=== PATIENT | male | born 1995 | race Caucasian/White ===

== ENCOUNTER 2017-02-12 01:37 | Emergency (ER) | payer BC, OTHER ==
--- NOTE | 2017-02-12 01:39 | PDOC ---
History of Present Illness - General Chief Complaint: Nausea/Vomiting Stated Complaint: NAUSEA/VOMITING Time Seen by Provider: 02/12/17 01:38 - History of Present Illness Initial Comments: 02/12/17 01:47 This 21-year-old man with a history of inactive asthma and no other significant past medical history presents with a few hour history of nausea and vomiting. Patient states that he ate at a "[id number]" at a steak house at approximately 8 PM. Approximately 90 minutes later, he began to vomit. Emesis was partially digested food followed by bilious liquid. No blood/coffee grounds noted. No history of diarrhea although he states he is actively passing gas. No fever noted although he feels chilly. No recent febrile illness. No recent travel. Patient states that he has poor eating habits (for example, does not eat breakfast and eats large amounts of food late in the day). No daily alcohol use. Patient states that he drinks alcohol and smokes marijuana on weekends. No other recreational drug use. Past History - Past Medical History Allergies/Adverse Reactions: Allergies Allergy/AdvReac Type Severity Reaction Status Date / Time No Known Allergies Allergy Unverified 05/19/12 01:18 Home Medications: Ambulatory Orders No Home Medications 05/19/12 Ondansetron [Zofran Odt -] 4 mg SL TID PRN #10 od.tablet 02/12/17 Asthma: Yes - Immunization History Td Vaccination: Yes - Suicide/Smoking/Psychosocial Hx Smoking Status: No Smoking History: Never smoked Number of Cigarettes Smoked Daily: 0 Hx Alcohol Use: No Drug/Substance Use Hx: No Review of Systems - Review of Systems Able to Perform ROS?: Yes Comments:: 12 point review of systems is negative except for what is noted in the history of present illness *Physical Exam - Physical Exam Comments: GENERAL: Young adult male, alert and oriented 3, in moderate distress, secondary to nausea HEAD: Normal with no signs of trauma. EYES: PERRLA, EOMI, sclera anicteric, conjunctiva clear. ENT: Ears normal, nares patent, oropharynx clear without exudates. Dry mucous membranes. NECK: Normal range of motion, supple without lymphadenopathy, JVD, or masses. LUNGS: Breath sounds equal, clear to auscultation bilaterally. No wheezes, and no crackles. HEART:Regular rate and rhythm, normal S1 and S2 without murmur, rub or gallop. ABDOMEN:.normal bowel sounds No guarding,tenderness or rebound.No masses No distention. EXTREMITIES: Normal range of motion, no edema. No clubbing or cyanosis. No erythema, or tenderness. NEUROLOGICAL: Cranial nerves II through XII grossly intact. Normal speech. No focal neurological deficits. MUSCULOSKELETAL: Back non-tender to palpation, no CVA tenderness SKIN: Warm, Dry, normal turgor, no rashes or lesions noted. Progress Note - Progress Note Progress Note: Patient was given 2 L of normal saline IV along with 2 doses of Zofran 4 mg IV. He had some recurrent nausea and vomiting after second dose of Zofran , so Reglan 10 mg IVPB administered. Patient was able to tolerate water by mouth after medications and IV hydration. He had mild epigastric discomfort but denied nausea or severe abdominal pain. Patient had voided twice prior to discharge. Patient discharged with instructions to maintain clear liquids and advance diet very cautiously. Prescription for Zofran ODT 4 mg up to 3 times a day was transmitted to the pharmacy. Patient should return to the emergency room if he has any recurrent, persistent vomiting or develops severe abdominal pain/fever *DC/Admit/Observation/Transfer Diagnosis at time of Disposition: Gastroenteritis - Discharge Dispostion Disposition: HOME Condition at time of disposition: Stable - Prescriptions Prescriptions: Ondansetron [Zofran Odt -] 4 mg SL TID PRN #10 od.tablet PRN Reason: Nausea - Referrals - Patient Instructions Printed Discharge Instructions: DI for Vomiting -- Adult Additional Instructions: Clear liquids, advance diet cautiously Zofran ODT 4 mg to 3 times a day as needed for nausea Follow-up with your doctor within the next 5 days Return to ER if you have persistent vomiting or severe pain Once you are able to eat regular food, try to avoid prolonged periods of fasting (eat small, more frequent meals) - Post Discharge Activity
[2017-02-12 01:41] VITALS: BP 142/88; PULSE 96; TEMP 98.3; BMI 25.8
[2017-02-12] MEDS ORDERED: ONDANSETRON 4 MG/2 ML VIAL IVPUSH ONE ×2 (01:47→02:29)
[2017-02-12] MEDS ORDERED: SODIUM CHLORIDE 1,000 ML IV STA (01:47)
[2017-02-12] MEDS ORDERED: ONDANSETRON 4 MG/2 ML VIAL ONE ×2 (01:53→02:33)
[2017-02-12] MEDS ORDERED: FAMOTIDINE IV 20 MG/12 ML VIAL IVPB ONE (01:56)
[2017-02-12] MEDS ORDERED: FAMOTIDINE 20 MG/50 ML IVPB 20 MG/50 ML MG IVPB ONE (01:56)
[2017-02-12] MEDS ORDERED: METOCLOPRAMIDE HCL INJECTION 10 MG/2 ML VIAL IVPB ONE (02:50)
== END 2017-02-12 03:35 | disposition home or self-care (01) ==
LOC: FER 01:37
PROC: 3E033GC Introduction of Other Therapeutic Substance into Peripheral Vein, Percutaneous Approach (ICD-10-PCS; principal; 2017-02-12)
PROC: 3E033GC Introduction of Other Therapeutic Substance into Peripheral Vein, Percutaneous Approach (ICD-10-PCS; 2017-02-12)
PROC: 3E0337Z Introduction of Electrolytic and Water Balance Substance into Peripheral Vein, Percutaneous Approach (ICD-10-PCS; 2017-02-12)
DX: K52.9 Noninfective gastroenteritis and colitis, unspecified (principal); J45.909 Unspecified asthma, uncomplicated
CPT/HCPCS: 99282-25

== ENCOUNTER 2017-06-25 19:37 | Emergency (ER) | payer BC ==
--- NOTE | 2017-06-25 19:40 | PDOC ---
History of Present Illness - General History Source: Patient Exam Limitations: No Limitations - History of Present Illness Initial Comments: 06/25/17 20:46 The patient is a 22 year old male who presents to the emergency department for evaluation of multiple episodes of emesis beginning at 12pm. The patient reports 10-12 episodes of NBNB emesis beginning at 12 noon. He reports associated epigastric pain ranked 4/10 in severity and nausea. The patient reports history of multiple episodes of emesis in which he was admitted to [facility] twice, in January and February. The patient states history of emesis had correlation with alcohol consumption the night prior to sickness, and admits he had a navid last night. The patient reports having a solid bowel movement this morning. The patient denies chest pain, shortness of breath, headache, dizziness and sick contact. Denies fevers, chills, diarrhea, and constipation. Denies dysuria, frequency, urgency, and hematuria. PAST MEDICAL HISTORY: Asthma PAST SURGICAL HISTORY: Hernia FAMILY HISTORY: no pertinent history SOCIAL HISTORY: Pt lives with family and is employed. Patient admits to social alcohol consumption and recreational marijuana use. MEDICATIONS: reviewed ALLERGIES: As per nursing notes ROS General: No fevers or chills, no weakness, no weight loss HEENT: No change in vision. No sore throat,. No ear pain Cardiovascular: No chest pain or shortness of breath Respiratory:No cough, or wheezing. Gastrointestinal: (+)Nausea. (+)Vomiting. No diarrhea or constipation, No rectal bleeding Genitourinary: No dysuria, hematuria, or frequency Musculoskeletal: (+)Epigastric pain. No joint pain or swelling. Neurologic: No headache, vertigo, dizziness or loss of consciousness Psychiatric: nor depression Skin: No rashes or easy bruising Endocrine: no increased thirst or abnormal weight change Allergic: no skin or latex allergy All other systems reviewed and normal PE General: Well-nourished well-developed individual, no acute distress HEENT: Throat: (+)Mucous membranes dry. No erythema or exudate Neck: Supple, no meningeal signs, no lymphadenopathy Eyes:Pupils equal reactive and round, extraocular motion intact Chest: Nontender to palpation Cardiac: S1-S2 normal, regular rate and rhythm, no murmurs rubs or gallops Respiratory: Lungs clear to auscultation bilateral Abdomen: (+)Bowel sounds mildly increased, otherwise normal. Soft, nondistended , nontender to palpation diffusely. Extremities: Warm, dry, no cyanosis, clubbing, or edema Skin: No rashes Neuro: Alert and oriented x3, nonfocal exam, grossly intact, normal gait Psych: Normal mood and affect <Yonathan Brice - Last Filed: 06/25/17 20:46> - General History Source: Patient Exam Limitations: No Limitations - History of Present Illness Initial Comments: A portion of this note was documented by scribe services under my direction. I have reviewed the details of the note, within reason, and agree with the documentation. The case summary and management plan written by me. 06/25/17 20:41 Assessment and plan: This is a 22-year-old male comes in complaining of vomiting. Patient has had history of similar vomiting in the past secondary to drinking alcohol. Patient said however he is also been able to drink alcohol without it precipitating the vomiting. Patient denied any pain, fever, diarrhea. On my exam patient's abdomen soft without any tenderness but slightly increased bowel sounds. We'll obtain basic labs and hydrate patient and give patient antiemetics. 21:30 Patient's vomiting will give some hyoscyamine and continue to hydrate 22:00 Patient vomiting will give Compazine and continue to hydrate Patient's labs show a mildly elevated white count with a small left shift. Potassium is 3.3 glucose is 126 otherwise labs are unremarkable 06/25/17 22:57 Patient awake alert feels much better and wants regular food as he says he is hungry. Patient given small amount of liquids orally which he tolerated and discharged home with his mother. Patient told clear liquids only tonight no regular food <Zana Mccartney I - Last Filed: 06/25/17 22:57> - General Chief Complaint: Nausea/Vomiting Stated Complaint: NAUSEA & VOMITING Time Seen by Provider: 06/25/17 19:39 Past History <Yonathan Brice - Last Filed: 06/25/17 20:46> - Past Medical History Asthma: Yes COPD: No - Immunization History Td Vaccination: Yes - Suicide/Smoking/Psychosocial Hx Smoking Status: No Smoking History: Never smoked Number of Cigarettes Smoked Daily: 0 'Breaking Loose' booklet given: 02/12/17 Hx Alcohol Use: No Drug/Substance Use Hx: No Substance Use Type: Alcohol, Marijuana <Zana Mccartney I - Last Filed: 06/25/17 22:57> - Past Medical History Allergies/Adverse Reactions: Allergies Allergy/AdvReac Type Severity Reaction Status Date / Time ondansetron Allergy Mild Itching Verified 06/25/17 20:21 Home Medications: Ambulatory Orders NK [No Known Home Medication] 06/25/17 *Physical Exam - Vital Signs Last Vital Signs Temp Pulse Resp BP Pulse Ox 98.2 F 72 16 123/77 100 06/25/17 19:38 06/25/17 19:38 06/25/17 19:38 06/25/17 19:38 06/25/17 19:38 <Yonathan Brice - Last Filed: 06/25/17 20:46> ED Treatment Course - LABORATORY CBC & Chemistry Diagram: 06/25/17 19:55 06/25/17 19:55 - ADDITIONAL ORDERS Additional order review: Laboratory Results 06/25/17 19:55 Sodium 135 L Potassium 3.3 L Chloride 102 Carbon Dioxide 23 Anion Gap 10 BUN 12 D Creatinine < 0.8 D Creat Clearance w eGFR > 60 Random Glucose 126 H D Calcium 9.4 Total Bilirubin 0.8 D AST 46 H D ALT 37 D Alkaline Phosphatase 86 Total Protein 7.5 Albumin 4.7 06/25/17 19:55 RBC 4.84 MCV 89.4 MCHC 35.2 RDW 13.0 MPV 7.6 Neutrophils % 85.5 H D Lymphocytes % 6.7 L D Monocytes % 7.5 Eosinophils % 0.0 D Basophils % 0.3 - Medications Given in the ED: ED Medications Discontinued Medications Generic Name Dose Route Start Last Admin Trade Name Freq PRN Reason Stop Dose Admin Metoclopramide HCl 10 mg 06/25/17 20:10 06/25/17 20:10 Reglan Injection - IVPUSH 06/25/17 20:11 10 mg ONCE ONE Administration Ondansetron HCl 8 mg 06/25/17 19:50 06/25/17 20:16 Zofran Injection IVPB 06/25/17 19:51 Not Given ONCE ONE <Yonathan Brice - Last Filed: 06/25/17 20:46> - LABORATORY CBC & Chemistry Diagram: 06/25/17 19:55 06/25/17 19:55 <Zana Mccartney I - Last Filed: 06/25/17 22:57> *DC/Admit/Observation/Transfer - Attestations Scribe Attestion: Documentation prepared by Yonathan Brice, acting as medical lab director for Zana Mccartney MD. <Yonathan Brice - Last Filed: 06/25/17 20:46> - Discharge Dispostion Admit: No <Zana Mccartney I - Last Filed: 06/25/17 22:57> Diagnosis at time of Disposition: Nausea and vomiting Qualifiers: Vomiting type: unspecified Vomiting Intractability: non-intractable Qualified Code(s): R11.2 - Nausea with vomiting, unspecified - Discharge Dispostion Disposition: HOME Condition at time of disposition: Good - Referrals Referrals: Jori Anderson MD [Primary Care Provider] - - Patient Instructions Printed Discharge Instructions: DI for Vomiting -- Adult Additional Instructions: Clear liquids only for the next 6 hours.. After that if you have had no further vomiting you may have bananas, rice, applesauce, or toast. If no further vomiting for another 8 hours you may have regular food. If you vomit again then nothing to eat or drink for 2 hours. then start back with the clear liquids. Return to the emergency department immediately with ANY new, persistent or worsening symptoms. You MUST call and follow up with your doctor tomorrow if not better. Please make sure your doctor reviews the results of your emergency evaluation. - Post Discharge Activity
[2017-06-25 19:45] VITALS: BP 123/77; PULSE 72; TEMP 98.2; BMI 25.0
[2017-06-25] MEDS ORDERED: SODIUM CHLORIDE 1,000 ML IV ONE ×3 (19:49→22:40)
[2017-06-25] MEDS ORDERED: ONDANSETRON 4 MG/2 ML VIAL IVPB ONE (19:50)
[2017-06-25] MEDS ORDERED: ONDANSETRON 4 MG/2 ML VIAL ONE (20:02)
[2017-06-25] MEDS ORDERED: METOCLOPRAMIDE HCL INJECTION 10 MG/2 ML VIAL IVPUSH ONE (20:10)
[2017-06-25 20:18] LABS: BASO % 0.3 % (0-2.0); HEMATOCRIT 43.3 % (35.4-49); HEMOGLOBIN 15.2 GM/dl (11.7-16.9); LYMPH % 6.7 % (8-40); MCH 31.4 pg (25.7-33.7); MCHC 35.2 g/dl (32.0-35.9); MEAN CELL VOLUME 89.4 fl (80-96); MEAN PLT VOLUME 7.6 fl (7.5-11.1); MONO % 7.5 % (3.8-10.2); NEUT % 85.5 % (42.8-82.8); PLATELET COUNT 316 K/MM3 (134-434); RBC 4.84 M/mm3 (4.00-5.60); WHITE BLOOD COUNT 13.7 K/mm3 (4.0-10.8)
[2017-06-25 20:20] LABS: ALBUMIN 4.7 g/dl (3.5-5.0); ALK PHOS 86 U/L (32-92); ANION GAP 10 (8-16); BILIRUBIN,TOTAL 0.8 mg/dl (0.2-1.0); BLOOD UREA NITROGEN 12 mg/dl (7-18); CALCIUM 9.4 mg/dl (8.4-10.2); CHLORIDE 102 mmol/L (98-107); CO2 23 mmol/L (22-28); GLUCOSE,RANDOM 126 mg/dl (74-106); POTASSIUM 3.3 mmol/L (3.5-5.1); SGOT/AST 46 U/L (10-42); SGPT/ALT 37 U/L (10-40); SODIUM 135 mmol/L (136-145); TOT PROT 7.5 g/dl (6.4-8.3)
[2017-06-25 20:27] LABS: CREATININE < 0.8 mg/dl (0.6-1.3)
[2017-06-25] MEDS ORDERED: HYOSCYAMINE SULFATE 0.125 MG *ODT PO ONE (21:32)
[2017-06-25] MEDS ORDERED: HYOSCYAMINE SULFATE 0.125 MG *ODT ONE (21:43)
[2017-06-25] MEDS ORDERED: PROCHLORPERAZINE INJECTION 10 MG/2 ML VIAL IVPB ONE (21:55)
[2017-06-25] MEDS ORDERED: PROCHLORPERAZINE INJECTION 10 MG/2 ML VIAL ONE (21:56)
[2017-06-26 18:54] LABS: LIPASE 39 U/L (73-393)
== END 2017-06-25 23:03 | disposition home or self-care (01) ==
LOC: FER 19:37
PROC: 3E033GC Introduction of Other Therapeutic Substance into Peripheral Vein, Percutaneous Approach (ICD-10-PCS; principal; 2017-06-25)
PROC: 3E0337Z Introduction of Electrolytic and Water Balance Substance into Peripheral Vein, Percutaneous Approach (ICD-10-PCS; 2017-06-25)
DX: R11.2 Nausea with vomiting, unspecified (principal); J45.909 Unspecified asthma, uncomplicated
CPT/HCPCS: 36415; 80053; 83690; 85025; 99283-25; J7030